=== PATIENT | female | born 1980 | race Two or more races ===

== ENCOUNTER → 2024-08-08 | Outpatient (CLI) | payer MEDICAID, SELFPAY ==
--- NOTE | 2024-08-08 12:25 | XR_ITS ---
Examination: MRI pelvis with intravenous contrast. MRI pelvis without intravenous contrast. Date and time of exam: August 08, 2024 1259 hours INDICATIONS: Irregular heavy menses beginning October 2023, CT pelvis April 17, 2024 multiple poorly defined uterine masses, the largest 6 x 5.8 cm Technique: Multiple axial, sagittal and coronal sections of the pelvis obtained. Transverse images, TR 6020, TE 107. T1 weighted transverse images, TR 582, TE 9.5. T2-weighted sagittal images, TR 4000, TE 105. T2-weighted sagittal images, TR 4000, TE 5. Coronal images, TR 4210, TE 107. Axial and coronal images are obtained post 20 cc intravenous injection, gadolinium. Findings: Anteverted uterus, 12.1 x 6.9 x 6.8 cm Uterine fundal marginated mass 4.8 x 5.2 cm, mild diffuse enhancement on the postcontrast images Anterior uterine body mass 11 x 8 mm Lower uterine segment mass 14 x 12 mm Endometrial stripe 6.6 mm No adnexal mass No free fluid in the pelvis No pathologic cervical lymphadenopathy Anterior uterine body mass 6 x 4 mm IMPRESSION: Findings most consistent with uterine areas of fibroid degeneration, the largest in the fundus of uterus 4.8 x 5.2 cm
== END | disposition home or self-care (01) ==
PROVIDERS: PCP Physician Assistant; Referring Provider Student in an Organized Health Care Education/Training Program; Visit Provider Student in an Organized Health Care Education/Training Program
DX: D25.9 Leiomyoma of uterus, unspecified (principal)
CPT/HCPCS: 72197; A9579

== ENCOUNTER 2024-10-30 12:16 | Emergency (ER) | payer MEDICAID, SELFPAY ==
[2024-10-30] VITALS (13 sets, daily range): BP systolic 115–155; BP diastolic 69–83; PULSE 79–114; RESP 14–24; TEMP 36.6–37.2; O2SAT 99–100; BMI 43.7
--- NOTE | 2024-10-30 12:52 | EKG_ITS ---
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
--- NOTE | 2024-10-30 12:52 | XR_ITS ---
Examination: PA lateral chest 2 views TECHNIQUE: Upright PA lateral chest 2 views Exam date and time: October 30, 2024, 1314 hours INDICATIONS: Chest pain difficulty breathing today. FINDINGS: Normal heart size. No pneumonia or pulmonary edema Moderate thoracic spondylosis IMPRESSION: No pneumonia or pulmonary edema
--- NOTE | 2024-10-30 12:52 | PD.EDRME ---
Rapid Medical Screening Exam RME Arrival date/time: 10/30/24 12:16 44-year-old female with a history of hypertension presents to the emergency room with a chief complaint of near syncopal episode, weakness, chest pain, dizziness x 1 day. I have greeted and performed a focused initial assessment of this patient. A comprehensive ED assessment and evaluation of the patient, analysis of all test results, and completion of the medical decision making process will be conducted by additional ED providers. Vital signs reviewed by provider: Yes
[2024-10-30 13:41] LABS: Collection Type, Urine Clean Catch
[2024-10-30 13:47] LABS: Basophils # (Auto) 0.1 Thou/mm3 (0.0-0.2); Basophils % (Auto) 1 % (0-2.5); Eosinophils # (Auto) 0.1 Thou/mm3 (0.0-0.5); Eosinophils % (Auto) 1 % (0-10); Hematocrit 22.5 % (36.0-46.0); Immature Granulocytes % (Auto) 1 % (0-0); Immature Granulocytes Auto 0.06 Thou/mm3 (0.00-0.00); Lymphocytes % (Auto) 23 % (10-50); Mean Corpuscular HGB Conc 28.9 g/dl (31.0-37.0); Mean Corpuscular Hemoglobin 20.7 pg (25.0-35.0); Mean Corpuscular Volume 72 fL (80-100); Monocytes % (Auto) 7 % (0-12); Neutrophils # (Auto) 9.1 Thou/mm3 (1.8-7.7); Neutrophils % (Auto) 68 % (37-80); Nucleated Red Blood Cell # 0.04 Thou/mm3 (0.00-0.00); Nucleated Red Blood Cell % 0 /100 WBC (0); Platelet Count 541 Thou/mm3 (140-440); RDW Standard Deviation 42.8 fL (36.4-46.3); Red Blood Count 3.14 Miln/mm3 (4.00-5.20); White Blood Count 13.3 Thou/mm3 (3.6-11.0)
[2024-10-30 13:50] LABS: Bilirubin,Urine Negative (Negative); Blood,Urine 3+ (Negative); Clarity,Urine Clear (Clear/Hazy); Color,Urine Colorless (Lt Yel-Yel); Glucose, Urine Trace (Negative); HCG Qualitative,Urine Negative; Ketones,Urine Negative (Negative); Leukocyte Esterase,Urine Negative (Negative); Nitrite,Urine Negative (Negative); Protein,Urine 1+ (Neg - Trace); RBC,Urine 507 /hpf (0-3); Squamous Epithelial Cell,Urine 1 /hpf (0-5); Urobilinogen,Urine Negative mg/dL (0.0-1.0); WBC,Urine 4 /hpf (0-5)
[2024-10-30 13:56] LABS: Hemoglobin 6.5 g/dL (12.0-16.0)
[2024-10-30 14:02] LABS: B-Type Natriuretic Peptide 27 pg/mL (0-100)
[2024-10-30 14:13] LABS: Partial Thromboplastin Time 22.9 Seconds (22.0-36.0); Prothrombin Time 10.8 Seconds (9.0-12.2)
[2024-10-30 14:15] LABS: Alanine Aminotransferase < 7 U/L (10-49); Albumin, Serum 4.1 gm/dL (3.5-5.0); Albumin/Globulin Ratio 1.2 (1.2-2.2); Alkaline Phosphatase 57 U/L (46-116); Anion Gap 10 (7-16); Aspartate Amino Transferase < 10 U/L (0-34); BUN/Creatinine Ratio 10 Ratio (12-20); Bilirubin,Total 0.5 mg/dL (0.3-1.2); Blood Urea Nitrogen 10 mg/dL (9-23); Calcium 8.7 mg/dL (8.3-10.6); Calcium (Corrected) 8.7 mg/dL (8.5-10.1); Carbon Dioxide 20.5 mMol/L (20.0-31.0); Chloride 107 mMol/L (98-107); Estimated Creatinine Clearance 108.2 mL/min (>60); Globulin 3.4 gm/dL (2.3-3.5); Glucose 179 mg/dL (74-106); Magnesium 1.8 mg/dL (1.6-2.6); Osmolality,Calculated 276 (275-295); Potassium 3.5 mMol/L (3.4-5.1); Sodium 137 mMol/L (136-145); Total Protein 7.5 gm/dL (5.7-8.2); Troponin I < 0.002 ng/mL (0.0-0.045); eGFR > 60 See Note
--- NOTE | 2024-10-30 14:35 | EDNOTE_ITS ---
ED General RME/HPI General Chief complaint: Dizziness Stated complaint: NEAR SYNCOPE Time Seen by Provider: 10/30/24 14:26 Arrival date/time: 10/30/24 12:16 CC: Lightheaded dizziness with near syncope HPI 2 episodes today. 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 Patient also states retrospectively that she has been tired, and short of breath when she is running around. More so than usual. Patient has a past medical history of heavy vaginal bleeding and is under the care of Dr. Jon PHYSICIAN ASSISTANT CERTIFIED for dysfunctional uterine bleeding and got her second injection for addressing this issue several days ago. Patient is awake alert oriented nontoxic-appearing not in any acute distress and when at rest does not have any shortness of breath or difficulty breathing. Patient states she has had normal brown stools no black tarry stools she has not been vomiting any blood. RME / HPI RME / HPI narrative: 10/30/24 12:16 44-year-old female with a history of hypertension presents to the emergency room with a chief complaint of near syncopal episode, weakness, chest pain, dizziness x 1 day. I have greeted and performed a focused initial assessment of this patient. A comprehensive ED assessment and evaluation of the patient, analysis of all test results, and completion of the medical decision making process will be conducted by additional ED providers. Related Data Home Medications ?Medication ?Instructions ?Recorded ?Confirmed lisinopril 10 mg tablet 10 mg PO QDAY #0 tabs gabapentin 100 mg capsule 100 mg PO TID #0 caps saxagliptin 2.5 mg tablet (Onglyza) 2.5 mg PO QDAY #0 tabs 07/12/17 Previous Rx's ?Medication ?Instructions ?Recorded sodium chloride 0.65 % nasal spray 2 spray intranasal QID #88 mL 11/25/22 aerosol (Saline Nasal) hydrocodone 5 mg-acetaminophen 325 1 tab PO BID PRN pa in #10 tabs 03/06/24 mg tablet Allergies Allergy/AdvReac Type Severity Reaction Status Date / Time No Known Allergies Allergy Verified 10/30/24 14:47 Review of Systems Review of Systems Narrative Review of Systems: GEN: No fever, no chills, no weight loss EYES: No discharge, no visual changes, no pain HEENT: No ear pain, no congestion, no sore throat PULM: No shortness of breath, no cough, no congestion CV: No chest pain, no dyspnea on exertion, no palpitations GI: No nausea, no vomiting, no diarrhea, no pain, no constipation : No frequency, no urgency, no dysuria MUSC/SKEL: No joint pain, no back pain SKIN: No rash PSYCH: No hallucinations, no depression HEME/LYMPH: No easy bleeding or bruising tendencies NEURO: + weakness, no headache ED Exam Narrative Physical exam: [General: Obese not in any acute distress Head normocephalic HEENT: Eyes pupils are PERRLA EOMs intact, blanched conjunctiva. Mouth blanched oral mucosa moist, swallow symmetrical phonation normal all other subsystems HEENT are within acceptable limits Neck is supple nontender Chest equal chest rise nontender to palpation Respiratory: Clear to auscultation no wheezes crackles or rubs CV: Rate rhythm is regular no murmurs rubs or clicks Abdomen is distended secondary to body habitus soft nontender no masses positive bowel sounds all 4 quadrants Back: No CVA tenderness no spinous process tenderness from cervical spine thoracic and lumbar spine Skin: Pale, intact no petechiae rash induration ulceration or crepitus Extremities: Moving all extremity against resistance cap refill less than 2 seconds neurosensory intact Neuro: Awake alert oriented x3 Glascow coma 15 no focal deficits] Course Quality Measures none Orders Category Date Time Status Bedside COVID-19 Antigen Test NOW Care 10/30/24 12:52 Active Bedside Influenza A&B Antigen Test NOW Care 10/30/24 12:52 Completed EKG (ED ONLY) *Do not use* NOW Care 10/30/24 12:52 Completed Transfuse,blood/blood products NOW Care 10/30/24 14:34 Active EKG (ED Only) Stat Exams 10/30/24 12:52 Draft XR chest 2V Stat Exams 10/30/24 12:52 Completed Antibody Identification Stat Lab 10/30/24 14:58 Results B-Type Natriuretic Peptide Stat Lab 10/30/24 13:27 Completed CBC Stat Lab 10/30/24 13:27 Completed Comprehensive Metabolic Panel Stat Lab 10/30/24 13:27 Completed HCG Qualitative,Urine Stat Lab 10/30/24 13:15 Completed Magnesium Stat Lab 10/30/24 13:27 Completed Partial Thromboplastin Time Stat Lab 10/30/24 13:27 Completed Prothrombin Time with INR Stat Lab 10/30/24 13:27 Completed Troponin I Stat Lab 10/30/24 13:27 Completed Type and Screen Stat Lab 10/30/24 14:58 Results Urinalysis Stat Lab 10/30/24 13:15 Completed prbc [Red Blood Cells] Stat Lab 10/30/24 14:58 Results Acetaminophen Tab [Tylenol Tab] Med 10/30/24 15:03 Discontinued 650 mg PO X1 ONE Vital Signs Vital signs: Vital Signs Temperature 98.7 F 10/30/24 12:59 Pulse Rate 93 10/30/24 12:59 Respiratory Rate 18 10/30/24 12:59 Blood Pressure 138/83 H 10/30/24 12:59 Pulse Oximetry (%) 100 10/30/24 12:59 Oxygen Delivery Method Room Air 10/30/24 12:59 [facility] Patient data External records reviewed:: [facility] previous records and EMS form Clinical information provided by:: patient and EMS Social determinants that could affect healthcare access:: none Patient has the following chronic illnesses:: Obesity dysfunctional uterine bleeding How is presenting disease/condition affected by chronic disease/condition?: e xacerbated by Evaluation data The following diagnostics were reviewed and interpreted by me:: lab results and radiology exam(s) Lab and/or radiology exams considered but not ordered:: CBC shows a mild leukocytosis of 13.3 and H&H of 6.5 and 22.5 respectively with a platelet count of 541 Coags within acceptable limits CMP shows no significant electrolyte imbalances renal impairment transaminitis or T. bili elevation BNP is -27 troponin is negative is within acceptable limits. Urine shows 1+ protein 3+ blood 507 RBCs no bacteria no leukocyte esterase. Urine is negative Interpretation Summary: I suspect the patient has had anemia secondary to heavy vaginal bleeding. As the patient has no black stools at this time we will transfuse 2 units and have her follow-up with Dr. Jon. Reassessment of this patient at 213, the patient is resting comfortably feeling much better, patient is nearly completed with a second unit at this time we will discharge the patient home when the unit is complete. Patient is to follow-up as stated. Medications Medications considered but not ordered:: None Medication administrations:: Medication Administration History Discontinued Medications Acetaminophen (Acetaminophen 325 Mg Tablet) 650 mg PO X1 ONE Stop: 10/30/24 15:04 Last Admin: 10/30/24 15:57 Dose: 650 mg Documented By: KELLY None Consultations Consultation(s) initiated? (list below): No Diagnosis Differential Diagnosis ED Complaint MDM: Dysmenorrhagia anemia electrolyte imbalance Most likely diagnosis given after review of the tests above:: Dysmenorrhagia anemia Admission Indicated Admission indicated?: not indicated Explain why admission is indicated or not indicated:: Stable for outpatient follow-up Admission Request Was there a request for admission?: No Disposition Plan Disposition Plan: Discharge Discharge Attestation Discharge Attestation: The patient and all family members were given an opportunity to ask questions and understood the discharge instructions. Discharge instructions specifically effects, indications for sooner follow up or return to the emergency department, and the expected course of current diagnosis. Patient condition: Stable Medical Decision Making Differential Diagnosis Differential Diagnosis: Dysmenorrhagia anemia electrolyte imbalance Lab Data 10/30/24 13:27 10/30/24 13:27 Labs: Lab Results 10/30/24 10/30/24 10/30/24 Range/Units 13:15 13:27 14:58 WBC 13.3 H (3.6-11.0) Thou/mm3 RBC 3.14 L (4.00-5.20) Miln/mm3 Hgb 6.5 L* (12.0-16.0) g/dL Hct 22.5 L (36.0-46.0) % MCV 72 L (80-100) fL MCH 20.7 L (25.0-35.0) pg MCHC 28.9 L (31.0-37.0) g/dl RDW Std Deviation 42.8 (36.4-46.3) fL Plt Count 541 H (140-440) Thou/mm3 Neut % (Auto) 68 (37-80) % Lymph % (Auto) 23 (10-50) % [place] % (Auto) 7 (0-12) % Eos % (Auto) 1 (0-10) % Baso % (Auto) 1 (0-2.5) % Neut # (Auto) 9.1 H (1.8-7.7) Thou/mm3 Lymph # (Auto) 3.0 (1.0-4.8) Thou/mm3 [place] # (Auto) 1.0 H (0.0-0.8) Thou/mm3 Eos # (Auto) 0.1 (0.0-0.5) Thou/mm3 Baso # (Auto) 0.1 (0.0-0.2) Thou/mm3 Immature Gran # (Auto) 0.06 H (0.00-0.00) Thou/mm3 Absolute Nucleated RBC 0.04 H (0.00-0.00) Thou/mm3 Immature Gran % 1 H (0-0) % Nucleated RBC % 0 (0) /100 WBC PT 10.8 (9.0-12.2) Seconds INR 1.0 (0.9-1.3) APTT 22.9 (22.0-36.0) Seconds Sodium 137 (136-145) mMol/L Potassium 3.5 (3.4-5.1) mMol/L Chloride 107 (98-107) mMol/L Carbon Dioxide 20.5 (20.0-31.0) mMol/L Anion Gap 10 (7-16) BUN 10 (9-23) mg/dL Creatinine 1.0 (0.6-1.3) mg/dL Estim Creat Clear Calc 108.2 (>60) mL/min eGFR > 60 (60 - ) See Note BUN/Creatinine Ratio 10 L (12-20) Ratio Glucose 179 H (74-106) mg/dL Calculated Osmolality 276 (275-295) Calcium 8.7 (8.3-10.6) mg/dL Corrected Calcium 8.7 (8.5-10.1) mg/dL Magnesium 1.8 (1.6-2.6) mg/dL Total Bilirubin 0.5 (0.3-1.2) mg/dL AST < 10 (0-34) U/L ALT < 7 L (10-49) U/L Alkaline Phosphatase 57 (46-116) U/L Troponin I < 0.002 (0.0-0.045) ng/mL B-Natriuretic Peptide 27 (0-100) pg/mL Total Protein 7.5 (5.7-8.2) gm/dL Albumin 4.1 (3.5-5.0) gm/dL Globulin 3.4 (2.3-3.5) gm/dL Albumin/Globulin Ratio 1.2 (1.2-2.2) Ur Collection Type Clean Catch Urine Color Colorless A (Lt Yel-Yel) Urine Clarity Clear (Clear/Hazy) Urine pH 6.0 (5.0-7.0) Ur Specific [place] 1.010 (1.001-1.035) Urine Protein 1+ A (Neg - Trace) Urine Glucose (UA) Trace (Negative) Urine Ketones Negative (Negative) Urine Blood 3+ A (Negative) Urine Nitrite Negative (Negative) Urine Bilirubin Negative (Negative) Urine Urobilinogen (Auto) Negative (0.0-1.0) mg/dL Ur Leukocyte Esterase Negative (Negative) Urine RBC 507 H (0-3) /hpf Urine WBC 4 (0-5) /hpf Ur Squamous Epith Cells 1 (0-5) /hpf Urine Bacteria None (None) Urine HCG, Qual Negative Blood Type O Positive Antibody Screen POSITIVE Crossmatch See Detail Blood Bank Wristband ID Yes Discharge Plan Plan Patient Disposition: HOME (Self Care) Patient condition on transfer: Stable Prescriptions/Referrals Prescriptions/Med Rec: No Action lisinopril 10 MG tablet 10 mg PO QDAY Qty: 0 gabapentin 100 MG capsule 100 mg PO TID Qty: 0 saxagliptin [Onglyza] 2.5 MG tablet 2.5 mg PO QDAY Qty: 0 hydrocodone-acetaminophen 5-325 mg tablet 1 tab PO BID MDD 10mg PRN (Reason: pain) Qty: 10 0RF Saline Nasal 0.65 % aerosol,spray 2 spray intranasal QID Qty: 88 0RF Referrals: No Primary/Family,Physician [Primary Care Provider] - In 1 week Heriberto Jon MD [Physician] - In 1 week Problem List Clinical Impression: Anemia, Dysfunctional uterine hemorrhage Patient/Caregiver Discharge Instructions Education Materials: Anemia Additional Instructions: Follow-up with Dr. Jon as stated if there is a worsening of symptoms or repeat of symptoms return the emergency room for reevaluation. Print Language: Swazi Stand Alone Forms: Emma Award Info., Work/School Release, Patient Portal Info Letter PA/WET MACHINE TENDER Supervising Physician PA/WET MACHINE TENDER Supervising Physician: Christiano Gardner ENP
[2024-10-30] MEDS: ACETAMINOPHEN 325 MG TABLET 650 MG PO (15:57)
--- NOTE | 2024-10-30 18:03 | PD.EDADDENDU ---
Emergency Room Addendum Addendum Narrative: 2300: Care assumed from Dr. Keenan, the previous shift emergency physician. Past medical, surgical, social and family history reviewed. Vitals and home medications reviewed. Results and treatment plan discussed. I will assume the care of the patient at this time and will follow the patient, pending 5150 placement. Please refer to the emergency department record for history and examination from initial visit.
== END 2024-10-30 22:18 | disposition home or self-care (01) ==
PROVIDERS: Nurse Practitioner Family; Emergency Provider Emergency Medicine
DX: D64.9 Anemia, unspecified (principal); N93.8 Other specified abnormal uterine and vaginal bleeding; I10 Essential (primary) hypertension
CPT/HCPCS: 36415; 36430; 71046; 80053; 81001; 81025; 83735; 83880; 84484; 85025; 85610; 85730; 86850; 86870; 86900; 86901; 86902; 86921; 86922; 87400; 87811; 93005; 99285; P9016; A9270